=== PATIENT | female | born 1990 | race Caucasian/White ===

== ENCOUNTER 2018-03-18 14:32 | Outpatient (REF) | payer SELFPAY | END 2018-03-18 14:33 | LOC: OM 14:32 | PROVIDERS: Visit Provider Nurse Practitioner Family | DX: Z02.1 Encounter for pre-employment examination (principal) ==

== ENCOUNTER 2018-04-05 01:50 | Emergency (ER) | payer MEDICAID, SELFPAY ==
[2018-04-05 01:52] VITALS: BP 155/59; PULSE 63; RESP 16; TEMP 36.5; O2SAT 98
--- NOTE | 2018-04-05 01:52 | ED.GENADUL ---
Disposition Clinical Impression: Viral URI with cough Disposition: HOME Condition: Good Instructions: Upper Respiratory Infection (ED), Benzonatate (By mouth) Additional Instructions: Rest, qmji-ayg-hgeyybd cold medicine, hydrate. Tessalon as needed for cough. Follow-up with primary care next week if not doing better. Return to ED if increasing shortness of breath, chest pain, vomiting, other concerns. Prescriptions: Benzonatate [Tessalon Perles] 100 mg PO TID PRN #15 cap PRN Reason: Cough Referrals: Primary Care Provider [Outside] Medical Decision Making - Medical Decision Making Patient's symptoms consistent with viral URI. She has no exudate or edema to the throat but I will do a rapid strep due to her complaint of sore throat. She has a dry cough for which we will give her some Tessalon. Her lungs are clear with no wheezing, rhonchi, rales, decreased breath sounds. She is in no distress. He did not think she needs x-rays at this point. We will continue to treat symptomatically for viral URI. Rapid strep is negative. Culture sent. Tessalon given and will provide prescription for same. Treat as viral URI for the time being. Follow-up with primary care next week if not better. Return to ED if increasing shortness of breath, worsening pain, other concerns. History of Present Illness - General Stated complaint: UNKNOWN Time Seen by Provider: 04/05/18 01:51 Source: patient Mode of arrival: ambulatory Limitations: no limitations - History of Present Illness Initial comments: Patient presents to ED with complaint of sore throat, congestion, cough, not feeling well. Symptoms started on Wednesday, 3 days ago. Sore throat is better but the nasal congestion and cough is worse. She does not know whether she has had a fever at home or not since she does not have a thermometer. She has had sweats and chills. She does not feel short of breath. She is not having chest pain. She has no GI symptoms. She has had no rash. She has some body aches and malaise. - Related Data Ethynodiol Diace-Eth Estradiol [Demulen -] 09/08/17 Fluoxetine HCl [Prozac] 20 mg PO DAILY AM 09/08/17 Ibuprofen 600 mg PO Q6H PRN #15 tablet 09/08/17 Levothyroxine [Levothroid] 125 mg PO DAILY 09/08/17 Benzonatate [Tessalon Perles] 100 mg PO TID PRN #15 cap 04/05/18 Allergies Allergy/AdvReac Type Severity Reaction Status Date / Time No Known Allergies Allergy Unverified 04/05/18 01:55 Review of Systems Constitutional: diaphoresis, malaise. denies: fever Eyes: denies: eye discharge ENT: ear pain, throat pain, congestion Respiratory: cough. denies: shortness of breath Cardiovascular: denies: chest pain Gastrointestinal: denies: abdominal pain, nausea, vomiting Genitourinary: denies: dysuria Musculoskeletal: myalgia. denies: arthralgia Skin: denies: rash Neurological: denies: headache, weakness Past Medical History - Past Medical History hypothyroid Surgical history: no surgical history Psychiatric history: anxiety, depression - Social History Smoking status: never smoker General Exam - General Limitations: no limitations General appearance: alert, in no apparent distress - Head Head exam: Present: atraumatic, normocephalic - Eye Eye exam: Present: normal apperance. Absent: conjunctival injection - ENT ENT exam: Present: TM's normal bilaterally. Absent: normal orophraynx (Very slight posterior oropharynx erythema.) - Neck Neck exam: Present: full ROM, lymphadenopathy (Shotty anterior adenopathy) - Respiratory Respiratory exam: Present: normal lung sounds bilaterally. Absent: respiratory distress, wheezes, rales, rhonchi - Cardiovascular Cardiovascular Exam: Present: regular rate, normal rhythm, normal heart sounds - Extremities Exam Extremities exam: Present: full ROM - Neurological Exam Neurological exam: Present: alert, oriented X3, CN II-XII intact. Absent: motor sensory deficit - Psychiatric Psychiatric exam: Present: normal affect, normal mood - Skin Skin exam: Present: warm, dry, intact. Absent: rash
[2018-04-05] MEDS: Benzonatate 100 MG CAP PO (02:08)
--- NOTE | 2018-04-05 08:38 | PDOC.ERCMPRO ---
Care Management Progress Note 04/05-Dr. Rodarte requested assistance with a PCP f/u appt for URI and cough. Patient new to area, needs PCP. [id number] organizational development consultant. Referral faxed to [facility] today.
== END 2018-04-05 02:36 | disposition home or self-care (01) ==
PROVIDERS: Emergency Provider Emergency Medicine
DX: J06.9 Acute upper respiratory infection, unspecified (principal); R05 Cough
CPT/HCPCS: 87880; 99283; 87081

== ENCOUNTER 2018-05-13 19:02 | Outpatient (REF) | payer MEDICAID, SELFPAY ==
[2018-05-16 10:33] LABS: TSH 1.63 uIU/mL (0.358-3.74)
[2018-05-17 14:40] LABS: Chlamydia Result Negative; GC Result Negative; Specimen Description URINE
== END 2018-05-13 19:22 ==
LOC: NCHCN 19:02
PROVIDERS: Visit Provider Nurse Practitioner Family
DX: E03.9 Hypothyroidism, unspecified (principal); J45.990 Exercise induced bronchospasm; F41.8 Other specified anxiety disorders; Z11.3 Encounter for screening for infections with a predominantly sexual mode of transmission
CPT/HCPCS: 87491; 87591; 84443

== ENCOUNTER 2018-08-12 12:26 | Outpatient (CLI) | payer MEDICAID, SELFPAY ==
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
== END 2018-08-12 12:46 ==
PROVIDERS: Visit Provider Nurse Practitioner Family
DX: M25.552 Pain in left hip (principal); R26.2 Difficulty in walking, not elsewhere classified
CPT/HCPCS: 73502

== ENCOUNTER 2018-08-26 09:27 | Outpatient (REF) | payer MEDICAID, SELFPAY ==
[2018-08-26 13:00] LABS: Abs Immature Grans 0.02 k/cumm (0.0-0.09); Absolute Basophil Count 0.03 k/cumm (0.0-0.2); Absolute Eosinophil Count 0.11 k/cumm (0.0-0.7); Absolute Lymphocyte Count 2.63 k/cumm (1.2-3.4); Absolute Monocyte Count 0.57 k/cumm (0.11-0.7); Absolute Neutrophil Count 4.44 k/cumm (1.2-6.7); Basophils % 0.4; Eosinophils % 1.4; HCT 40.1 % (36.0-46.0); HGB 13.5 g/dL (12.0-15.5); Immature Grans % 0.3; Lymphocytes % 33.7; Mean Corp. HGB Concentration 33.7 g/dL (32.0-36.0); Mean Corpuscular Hemoglobin 28.8 pg (27.0-33.0); Mean Corpuscular Volume 85.5 fL (80-95); Mean Platelet Volume 10.5 fL (8.0-11.0); Monocytes % 7.3; Neutrophils % 56.9; Platelet Count 299 x1000/uL (130-400); RBC 4.69 m/cumm (4.00-5.20); RBC Distribution Width 13.2 % (11.7-14.6)
[2018-08-26 13:32] LABS: ALT 24 U/L (12-78); AST 12 U/L (15-37); Albumin 3.6 g/dL (3.4-5.0); Alkaline Phosphatase 109 U/L (46-116); Anion Gap 8.2 mmol/L (3-11); BUN 18 mg/dL (7-18); Bilirubin, Total 0.5 mg/dL (0.2-1.0); CO2 27.8 mmol/L (21.0-32.0); CREATININE 0.83 mg/dL (0.55-1.02); Calcium 9.5 mg/dL (8.5-10.1); Chloride 105 mmol/L (98-107); Glucose 101 mg/dL (70-100); Potassium 4.2 mmol/L (3.5-5.1); Sodium 141 mmol/L (136-145); TSH 2.71 uIU/mL (0.358-3.74); Total Protein 7.1 g/dL (6.4-8.2)
== END 2018-08-26 09:47 ==
LOC: NCHCN 09:27
PROVIDERS: Visit Provider Nurse Practitioner Family
DX: F41.8 Other specified anxiety disorders (principal)
CPT/HCPCS: 80053; 84443; 85025

== ENCOUNTER 2018-09-23 15:42 | Outpatient (REF) | payer MEDICAID, SELFPAY ==
[2018-09-23 19:51] LABS: Vitamin B12 517 pg/mL (193-986)
[2018-09-26 12:12] LABS: HBs Antibody, Quant 7.2 mIU/mL; Hepatitis B Surface Ab Negative
== END 2018-09-23 16:02 ==
LOC: NCHCN 15:42
PROVIDERS: PCP Nurse Practitioner Family; Visit Provider Nurse Practitioner Family
DX: Z11.59 Encounter for screening for other viral diseases (principal); Z00.00 Encounter for general adult medical examination without abnormal findings; F32.9 Major depressive disorder, single episode, unspecified
CPT/HCPCS: 86706; 82607

== ENCOUNTER 2019-01-02 12:07 | Emergency (ER) | payer MEDICAID, SELFPAY ==
[2019-01-02 12:15] VITALS: BP 128/72; PULSE 67; RESP 17; TEMP 36.7; O2SAT 95
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
[2019-01-02 13:39] VITALS: BP 119/78; PULSE 68; RESP 18; O2SAT 97
== END 2019-01-02 13:41 | disposition home or self-care (01) ==
PROVIDERS: Emergency Provider Student in an Organized Health Care Education/Training Program; PCP Nurse Practitioner Family
DX: S09.90XA Unspecified injury of head, initial encounter (principal); R51 Headache; R11.0 Nausea; Y04.2XXA Assault by strike against or bumped into by another person, initial encounter; Y99.0 Civilian activity done for income or pay
CPT/HCPCS: 99282

== ENCOUNTER 2019-03-10 11:34 | Outpatient (REF) | payer MEDICAID, SELFPAY ==
[2019-03-10 20:48] LABS: TSH (W/Ref FT4) 0.73 uIU/mL (0.36-3.74)
== END 2019-03-10 11:54 ==
LOC: NCHCN 11:34
PROVIDERS: PCP Nurse Practitioner Family; Visit Provider Nurse Practitioner Family
DX: E03.9 Hypothyroidism, unspecified (principal)
CPT/HCPCS: 84443

== ENCOUNTER 2019-03-28 11:07 | Outpatient (REF) | payer MEDICAID, SELFPAY ==
--- NOTE | 2019-03-28 09:30 | PAPFT_PTH ---
PATIENT: Chio Méndez LOC: [facility] U#:[id number] AGE/SX: 28/F ROOM: RE03/28/[address]: Janeth Cazares : 1990 BED: DIS: 03/28/2019 SPEC #: [id number] RECD: 03/28/19 12:51 STATUS: RENETTA HEMPHILL #: [id number] LAYLA: 03/28/19 09:[address]: Janeth Cazares DEPT: [facility] Cytology RECD BY: Isabella Adorno ENTERED: 03/28/19 12:52 SP TYPE: PAPFT OTHR DR: Karla Garcia Tissues: 1 - CX/ENDOCX FOR PAP SMEARS Procedures: PAP THIN PREP/[facility] Screening Comments: [id number]
== END 2019-03-28 11:27 ==
LOC: NCHCN 11:07
PROVIDERS: PCP Nurse Practitioner Family; Visit Provider Nurse Practitioner Family
DX: Z12.4 Encounter for screening for malignant neoplasm of cervix (principal); Z11.51 Encounter for screening for human papillomavirus (HPV)
CPT/HCPCS: 88142

== ENCOUNTER 2019-12-28 11:11 | Outpatient (CLI) | payer MEDICAID, SELFPAY ==
[2019-12-29 10:07] LABS: Measles IgG Antibody Positive (See Note); Varicella IgG Antibody Positive (See Note)
[2019-12-29 10:11] LABS: Mumps Antibody IgG Positive (See Note); Rubella IgG Ab (UVM) Positive (See Note)
[2019-12-29 10:39] LABS: HBs Antibody, Quant 7.5 mIU/mL (See Note); Hepatitis B Surface Ab Negative (See Note)
[2020-01-01 13:54] LABS: TB Interpretation Negative (Negative)
== END 2019-12-28 11:31 ==
PROVIDERS: PCP Nurse Practitioner Family; Visit Provider Nurse Practitioner Family
DX: Z02.1 Encounter for pre-employment examination (principal); Z11.59 Encounter for screening for other viral diseases; Z01.84 Encounter for antibody response examination; Z11.1 Encounter for screening for respiratory tuberculosis
CPT/HCPCS: 36415; 86706; 86787; 86480; 86735; 86762; 86765

== ENCOUNTER 2020-04-24 15:44 | Outpatient (REF) | payer MEDICAID, SELFPAY ==
[2020-04-24 19:35] LABS: HCT 43.1 % (36.0-46.0); HGB 14.4 g/dL (11.2-15.7); MCH 27.9 pg (27.0-33.0); MCHC 33.4 % (32.0-36.0); MCV 83.4 fL (80-95); MPV 11.4 fL (8.0-11.0); Platelet Count 286 10^3/uL (130-400); RBC 5.17 10^6/uL (3.93-5.22); RDW 12.8 % (11.7-14.6); RDW-SD 38.7 fL
[2020-04-24 20:42] LABS: ALT 30 U/L (14-59); AST 13 U/L (15-37); Albumin 3.8 g/dL (3.4-5.0); Alkaline Phosphatase 136 U/L (46-116); Anion Gap 10.1 mmol/L (3-11); BUN 17 mg/dL (7-18); Bilirubin, Total 0.4 mg/dL (0.2-1.0); CO2 22.9 mmol/L (21.0-32.0); CREATININE 0.79 mg/dL (0.55-1.02); Calcium 9.1 mg/dL (8.5-10.1); Calculated LDL 110 mg/dL (<100); Chloride 101 mmol/L (98-107); Cholesterol 171 mg/dL (<200); Glucose 242 mg/dL (74-106); HDL Cholesterol 40 mg/dL (40-60); Potassium 3.9 mmol/L (3.5-5.1); Sodium 134 mmol/L (136-145); TSH (W/Ref FT4) 3.39 uIU/mL (0.36-3.74); Total Protein 7.4 g/dL (6.4-8.2); Triglyceride 109 mg/dL (<150)
[2020-04-24 21:24] LABS: Iron 90 ug/dL (50-170); Total Iron Binding Capacity 331 ug/dL (250-450); Transferrin Sat 27 % (15-50)
== END 2020-04-24 16:04 ==
LOC: NCHCN 15:44
PROVIDERS: PCP Nurse Practitioner Family; Visit Provider Nurse Practitioner Family
DX: R53.83 Other fatigue (principal); Z13.220 Encounter for screening for lipoid disorders; Z13.228 Encounter for screening for other metabolic disorders
CPT/HCPCS: 80053; 80061; 85027; 83540; 83550; 84443

== ENCOUNTER 2020-06-03 17:53 | Outpatient (REF) | payer MEDICAID, SELFPAY ==
[2020-06-03 20:11] LABS: Hemoglobin A1C 10.7 % (<5.7)
== END 2020-06-03 18:13 ==
LOC: NCHCN 17:53
PROVIDERS: PCP Nurse Practitioner Family; Visit Provider Nurse Practitioner Family
DX: R73.09 Other abnormal glucose (principal)
CPT/HCPCS: 83036

== ENCOUNTER 2020-06-07 03:26 | Outpatient (CLI) | payer MEDICAID, SELFPAY ==
--- NOTE | 2020-06-07 | DI.US_ITS ---
EXAM: US ABDOMEN CLINICAL HISTORY: ABD PAIN, R10.9, RUQ PAIN, NAUSEA FOR 2 WKS TECHNIQUE: Ultrasound abdomen performed using standard protocol. COMPARISON: No exams were available for comparison FINDINGS: LIVER: Liver is enlarged and shows increased echogenicity, consistent with fatty infiltration. Liver measures 19 cm in length.. No focal liver lesions are seen.. GALLBLADDER: No evidence of cholelithiasis. No evidence of wall thickening. No pericholecystic fluid identified. BERNABE'S SIGN: Negative. BILIARY SYSTEM: No intrahepatic or extrahepatic biliary ductal dilation. KIDNEYS: Kidneys are symmetric in size. No evidence of renal calculi. No evidence of hydronephrosis. No renal mass or cyst identified. PANCREAS: Normal where visualized. SPLEEN: Not enlarged. ABDOMINAL AORTA AND IVC: Visualized portions normal caliber. ASCITES: None seen. IMPRESSION: Moderate hepatic steatosis. No gallbladder abnormality.. DATA REPOSITORY:
== END 2020-06-07 03:46 ==
PROVIDERS: PCP Physician Assistant; Visit Provider Specialist
DX: K76.0 Fatty (change of) liver, not elsewhere classified (principal)
CPT/HCPCS: 76700

== ENCOUNTER 2020-09-04 14:00 | Outpatient (REF) | payer MEDICAID, SELFPAY ==
[2020-09-04 15:15] LABS: HCT 39.6 % (36.0-46.0); HGB 13.1 g/dL (11.2-15.7); MCH 28.1 pg (27.0-33.0); MCHC 33.1 % (32.0-36.0); MPV 10.7 fL (8.0-11.0); Platelet Count 326 10^3/uL (130-400); RBC 4.66 10^6/uL (3.93-5.22); RDW 12.5 % (11.7-14.6); RDW-SD 38.2 fL
[2020-09-04 15:40] LABS: Ferritin 111 ng/mL (8-252); TSH (W/Ref FT4) 1.33 uIU/mL (0.36-3.74)
[2020-09-04 15:41] LABS: Hemoglobin A1C 7.6 % (<5.7)
[2020-09-05 04:51] LABS: Vitamin D 25 Total 30.2 ng/ml (30-100)
== END 2020-09-04 14:20 ==
LOC: NCHCN 14:00
PROVIDERS: PCP Physician Assistant; Visit Provider Nurse Practitioner Family
DX: R53.83 Other fatigue (principal); E11.65 Type 2 diabetes mellitus with hyperglycemia; J45.20 Mild intermittent asthma, uncomplicated; G43.109 Migraine with aura, not intractable, without status migrainosus; E03.9 Hypothyroidism, unspecified
CPT/HCPCS: 82306; 85027; 82728; 83036; 84443

== ENCOUNTER 2020-11-01 03:15 | Outpatient (CLI) | payer MEDICAID, SELFPAY ==
[2020-11-01 09:33] LABS: HCG Quant, Pregnancy 5698 mIU/mL (1-3)
== END 2020-11-01 03:16 | disposition home or self-care (01) ==
LOC: LBO 03:15
PROVIDERS: PCP Physician Assistant
DX: Z32.01 Encounter for pregnancy test, result positive (principal)
CPT/HCPCS: 36415; 84702

== ENCOUNTER 2020-12-10 11:21 | Outpatient (CLI) | payer MEDICAID, SELFPAY ==
[2020-12-10 11:35] LABS: Source Nasal/Nares
[2020-12-10 11:54] LABS: Abs Immature Grans 0.03 10^3/uL (0.0-0.06); Absolute Basophil Count 0.05 10^3/uL (0.0-0.2); Absolute Eosinophil Count 0.11 10^3/uL (0.0-0.7); Absolute Lymphocyte Count 1.94 10^3/uL (1.2-3.4); Basophils % 0.6; Eosinophils % 1.4; HCT 37.8 % (36.0-46.0); HGB 12.6 g/dL (11.2-15.7); Immature Grans % 0.4; Lymphocytes % 25.1; MCH 28.3 pg (27.0-33.0); MCHC 33.3 % (32.0-36.0); MCV 84.9 fL (80-95); MPV 9.7 fL (8.0-11.0); Monocytes % 6.5; Nucleated RBC 0 %; Platelet Count 299 10^3/uL (130-400); RBC 4.45 10^6/uL (3.93-5.22); RDW 12.9 % (11.7-14.6); RDW-SD 39.8 fL; WBC 7.73 10^3/uL (4.4-10.8)
[2020-12-10 14:30] LABS: COVID-19 PCR Negative (Negative)
== END 2020-12-10 11:22 | disposition home or self-care (01) ==
LOC: LBO 11:21
PROVIDERS: PCP Physician Assistant; Visit Provider Obstetrics & Gynecology
DX: O02.1 Missed abortion (principal); Z20.822 Contact with and (suspected) exposure to COVID-19; Z01.818 Encounter for other preprocedural examination; Z01.812 Encounter for preprocedural laboratory examination
CPT/HCPCS: 36415; 86850; 86900; 86901; 87635; 85025

== ENCOUNTER 2020-12-12 07:08 | Day surgery (SDC) | payer MEDICAID, SELFPAY ==
[2020-12-12 07:30] VITALS: BP 113/75; PULSE 82; RESP 16; TEMP 36.6; O2SAT 97
[2020-12-12] MEDS: Lactated Ringers 1,000 ML 100 ML IV (07:58)
--- NOTE | 2020-12-12 08:08 | ANES.PREOP_ITS ---
General Info Date of Service Date Performed: 12/12/20 Height: 5 ft 3 in Weight: 112.2 kg Body Mass Index (BMI): 43.8 Surgical Procedure: Operation Date: 12/12/20 08:40 Proposed Procedures Side Surgeon p Suction Completion Merissa Spivey DO Meds Allergies and Home Medications Allergies Allergy/AdvReac Type Severity Reaction Status Date / Time bee venom protein (honey bee) Allergy Severe Verified 12/12/20 07:29 house dust Allergy Mild Verified 12/12/20 07:29 Home Medication Medication Instructions Recorded levothyroxine 125 mg PO DAILY 09/08/17 loratadine [Claritin] 10 mg PO DAILY 01/02/19 escitalopram oxalate 20 mg tablet 20 mg PO DAILY 10/28/20 metformin 1,000 mg tablet 1,000 mg PO BID 10/28/20 prenat.vits,rafal,mve-yztw-kukye 1 tab PO DAILY 10/28/20 Current Visit Medications: Current Medications Generic Name Dose Route Start Last Admin Trade Name Freq PRN Reason Stop Dose Admin Ringer's Solution 1,000 mls @ 100 mls/hr 12/12/20 06:00 12/12/20 07:58 IV 01/10/21 23:59 100 mls/hr INFUSION NHI Administration Doxycycline Hyclate 100 mg/ 100 mls @ 100 mls/hr 12/12/20 06:00 Sodium Chloride IVPB 12/12/20 23:59 PREOP NHI IV Miscellaneous Supplies 1 each 12/12/20 06:00 Iv Access IV 01/10/21 23:59 DIRECTED NHI Sodium Chloride 0 ml 12/12/20 06:00 Normal Saline Flush 10 Ml Syr IV 01/10/21 23:59 PRN PRN Sodium Chloride 0 ml 12/12/20 06:00 Normal Saline 10 Ml Vial IJ 01/10/21 23:59 DIRECTED PRN Sterile Water 0 ml 12/12/20 06:00 Water,Injection,Sterile 10 Ml Vial IJ 01/10/21 23:59 DIRECTED PRN PFSH Active Problems Active Problems: Problem Status Onset Code Type 2 diabetes mellitus E11.9 Hypothyroidism E03.9 Medical History Medical History (Updated 12/12/20 @ 08:15 by Radha Last) Body mass index (BMI) of 40.0-44.9 in adult Depression with anxiety Exercise-induced asthma Hx of sleep apnea cpap Hypothyroidism Type 2 diabetes mellitus Surgical History Surgical History (Updated 12/12/20 @ 07:29 by Radha Last) Hx of adenoidectomy Hx of tonsillectomy Hx of wisdom tooth extraction Tobacco Smoking/Tobacco Use Status: Never Second hand exposure: Yes Alcohol Alcohol Intake: never Details: occasional Substance Use Substance use: Never Substance use type: does not use Prental History History 1 Para 0 Hx # Term Pregnancies 0 Multiple births 0 Hx # Pregnancies 0 Ectopic pregnancies 0 AB induced 0 Hx Number of Living Children 0 AB spontaneous 1 Vital Signs and Lab Results Vital Signs Most Recent Vital Signs in EMR: Most Recent Vital Signs Temp Pulse Resp BP Pulse Ox 36.6 C 82 16 113/75 97 12/12/20 07:30 12/12/20 07:30 12/12/20 07:30 12/12/20 07:30 12/12/20 07:30 Point of Care Results Point of Care Results: Finger Stick Blood Glucose 146 12/12/20 07:59 Lab Results Blood Type / Crossmatch: Patient ABO/Rh A Positive 12/10/20 11:40 12/10/20 Antibody Screen Negative 12/10/20 11:40 12/10/20 Complete Blood Count: 2 White Blood Count 7.73 10^3/uL (4.4-10.8) 12/10/20 11:40 12/10/20 Red Blood Count 4.45 10^6/uL (3.93-5.22) 12/10/20 11:40 12/10/20 Hemoglobin 12.6 g/dL (11.2-15.7) 12/10/20 11:40 12/10/20 Hematocrit 37.8 % (36.0-46.0) 12/10/20 11:40 12/10/20 Platelet Count 299 10^3/uL (130-400) 12/10/20 11:40 12/10/20 Complete Metabolic Panel: Sodium Level 134 mmol/L (136-145) L 04/24/20 16:00 04/24/20 Potassium Level 3.9 mmol/L (3.5-5.1) 04/24/20 16:00 04/24/20 Chloride Level 101 mmol/L (98-107) 04/24/20 16:00 04/24/20 Carbon Dioxide Level 22.9 mmol/L (21.0-32.0) 04/24/20 16:00 04/24/20 Blood Urea Nitrogen 17 mg/dL (7-18) 04/24/20 16:00 04/24/20 Creatinine 0.79 mg/dL (0.55-1.02) 04/24/20 16:00 04/24/20 Calcium Level 9.1 mg/dL (8.5-10.1) 04/24/20 16:00 04/24/20 Albumin 3.8 g/dL (3.4-5.0) 04/24/20 16:00 04/24/20 Glucose Level 242 mg/dL (74-106) H 04/24/20 16:00 04/24/20 Hemoglobin A1c 7.6 % (<5.7) H 09/04/20 09:15 09/04/20 Liver Function Panel: Alanine Aminotransferase (ALT/SGPT) 30 U/L (14-59) 04/24/20 16:00 04/24/20 Aspartate Amino Transf (AST/SGOT) 13 U/L (15-37) L 04/24/20 16:00 04/24/20 Coagulation Panel: No Data to Display Cardiac Panel: No Data to Display Arterial Blood Gas: No Data to Display Venous Blood Gas: No Data to Display Pancreas Panel: No Data to Display Thyroid Panel: Thyroid Stimulating Hormone (TSH) 1.33 uIU/mL (0.36-3.74) 09/04/20 09:15 09/04/20 Infectious Disease: Coronavirus (COVID-19)(PCR) Negative (Negative) 12/10/20 11:28 12/10/20 Coronavirus 2019 Source Nasal/nares 12/10/20 11:28 12/10/20 Blood Cultures: No Data to Display Toxicology Panel: No Data to Display Panel: Urine HCG, Qualitative Positive 10/28/20 09:22 10/28/20 Beta HCG, Quantitative 5698 mIU/mL (1-3) H 11/01/20 07:59 11/01/20 Anesthesia Assessment and Plan Anesthesia History Personal History: No History of Anesthesia Complications Family History: No Family History of Anesthesia Complications Exercise Tolerance Exercise Tolerance: Metabolic Equivalents>4 Pertinent Negatives Pertinent Negatives: No Symptoms of GERD Cardiac & Pulmonary Exam Cardiac Exam: Normal S1/S2 Heart Sounds Pulmonary Exam: Clear Bilateral Breath Sounds Airway Exam Known Difficult Airway: No Mallampati Class: 1 Mouth Opening: Normal (> 3cm) Thyromental Distance: Greater than 3 cm Neck Range of Motion: Full ROM Neck Circumference: Thick Teeth Condition: Normal Dentition ASA Classification ASA Score: ASA 3 ASA Emergency: No NPO Status NPO Status: NPO Clears >2 hours, Solids >8 hours Status Status: Positive HCG (Missed ) Anesthesia Plan Anesthesia Technique: General Anesthesia Airway Planned: Natural Airway Monitors Used: Standard Monitors
[2020-12-12 08:18] VITALS: BMI 43.8
[2020-12-12] MEDS: DOXYCYCLINE 100 MG in Normal Saline 100 ML IVPB (09:03)
--- NOTE | 2020-12-12 09:30 | POCSPONT_PTH ---
PATIENT: Chio Méndez LOC: [facility] U#:[id number] AGE/SX: 29/F ROOM: RE12/12/[address]: Merissa Spivey DO : 1990 BED: DIS: 12/12/2020 SPEC #: [id number] RECD: 12/12/20 12:40 STATUS: RENETTA REQ #: [id number] LAYLA: 12/12/20 09:[address]: Merissa Spivey DEPT: Surgical Specimen RECD BY: Isabella Adorno ENTERED: 12/12/20 12:41 SP TYPE: POCSPONT HERNANDO DR: Omar Gilliam Tissues: 1 - ,SPONTANEOUS Procedures: GROSS AND MICRO LEVEL 4 Comments: [id number]
[2020-12-12 09:40] VITALS: BP 132/78; PULSE 86; RESP 14; TEMP 36.1; O2SAT 98
--- NOTE | 2020-12-12 09:44 | ROE_ITS ---
Date of service: 12/12/20 Time of Service: 09:45 Operative Note Operative Note DATE OF PROCEDURE: 12/12/20 PRE-OP DIAGNOSIS: Missed POST-OP DIAGNOSIS: same PROCEDURE: Dilation and curettage with suction SURGEON: Merissa Spivey ANESTHESIA TYPE: General:No Airway Refer to Anesthesia Record ESTIMATED BLOOD LOSS: 150 PATHOLOGY: other (Products of conception) COMPLICATIONS: None Patient was transported to: same day Indications: Missed Findings: Moderate products of conception Procedure Description: Patient was taken to the operating suite with an IV running. She was placed in dorsal supine position and anesthesia administered via monitored anesthesia care. She did receive doxycycline 1 dose IV. She was placed in the modified dorsal lithotomy position and prepped and draped in usual sterile fashion. Timeout was performed. Exam under anesthesia confirmed a uterus specimen 8 weeks size and freely mobile. Speculum was placed into the posterior vaginal vault and single-tooth tenaculum used to grasp the anterior lip of the cervix. Cervical os dilated the point that a 8 Macanese curved suction curette could be passed and with suction to a maximum pressure of 60 mmHg gentle suction curettage was performed. There were moderate products of conception noted. At this point suction catheter was removed and a sharp curettage performed of the uterine cavity. A second pass of the suction curette was performed and the coarse cry of the uterus could be felt in all 4 quadrants and free of tissue. The uterus was contracted and firm. Hemostasis was noted. Tenaculum was removed and tenaculum puncture sites also noted to be hemostatic. Uterus is midline and mobile, firm and well contracted. Speculum was then removed and patient was returned to the dorsal supine position. She woke from anesthesia with ease. Complications are none apparent. EBL: 150 cc Pathology: Products of conception Complications none apparent: Fluids: Crystalloid per anesthesia
[2020-12-12 10:18] VITALS: BP 143/79; PULSE 66; RESP 16; TEMP 36.2; O2SAT 100
[2020-12-12] MEDS: Acetaminophen 500 MG TAB 1000 MG PO (10:18)
[2020-12-12] MEDS: Doxycycline Hyclate 100 MG CAP PO (10:19)
--- NOTE | 2020-12-13 10:28 | W.ANESPOSTOP ---
Postoperative Evaluation Date, Time and Location Date Performed: 12/12/20 Time Performed: 10:15 Patient Location: Day Surgery Unit Vital Signs Most Recent Imported Vital Signs: Most Recent Vital Signs Temp Pulse Resp BP Pulse Ox 36.2 C L 66 16 143/79 H 100 12/12/20 10:18 12/12/20 10:18 12/12/20 10:18 12/12/20 10:18 12/12/20 10:18 Pain Score Most Recent Pain Score: Most Recent Pain Score Pain Level 6 12/12/20 10:18 Assessment Mental Status: Awake (Alert & Oriented to Patient Baseline) Airway and Respiratory Function: Patent airway with normal (patient baseline) respiratory exam Cardiovascular Function: Hemodynamically Stable Hydration Status: Adequately Hydrated Nausea & Vomiting: No Nausea or Vomiting Pain: Pain is Moderate or Severe (PO medication ordered) Postoperative Pain Management: Pain being addressed with medication Peripheral Nerve Block: Patient did not receive a nerve block
== END 2020-12-12 10:47 | disposition home or self-care (01) ==
PROVIDERS: PCP Physician Assistant; Visit Provider Obstetrics & Gynecology
PROC: (CPT 59841; principal; 2020-12-12 08:30)
DX: O02.1 Missed abortion (principal); Z3A.10 10 weeks gestation of pregnancy; E11.9 Type 2 diabetes mellitus without complications; Z79.84 Long term (current) use of oral hypoglycemic drugs; E03.9 Hypothyroidism, unspecified; F32.9 Major depressive disorder, single episode, unspecified
CPT/HCPCS: 59820; 86850; 86900; 86901; 88305; J2001; J2250; J2704; J3010

== ENCOUNTER 2021-02-19 20:00 | Emergency (ER) | payer MEDICAID, SELFPAY ==
[2021-02-19 20:04] VITALS: BP 132/87; PULSE 80; RESP 16; TEMP 36.9; O2SAT 97
--- NOTE | 2021-02-19 20:16 | W.ED.GENAD ---
Discharge Plan Disposition Patient Disposition: HOME Condition: Good Discharge Details Clinical Impression: URI (upper respiratory infection), Asthma Primary Care Provider: Omar Gilliam ED Provider: Naomi Olguin Home Meds and New Rx's Prescriptions: Continued escitalopram oxalate [Lexapro] 20 mg tablet 20 mg PO DAILY RF: 0 metformin 1,000 mg tablet 1,000 mg PO BID RF: 0 prenat.vits,rafal,gjr-wajq-txbme Tablet 1 tab PO DAILY RF: 0 loratadine [Claritin] 10 mg Tablet 10 mg PO DAILY RF: 0 levothyroxine 175 MCG tablet 125 mg PO DAILY RF: 0 ibuprofen 800 mg tablet 800 mg PO Q8H PRNQty: 30 RF: 0 Discharge Instructions Instructions: Albuterol (By breathing), Asthma (ED), Upper Respiratory Infection (ED) Additional Instructions: Your imaging and exam are reassuring here today. This is likely a viral upper respiratory infection. Please encourage water intake. Please continue your albuterol as previously prescribed. You may use Tylenol and ibuprofen as needed for discomfort or fevers. Please quarantine until your COVID-19 testing has returned. If you develop any new or worsening symptoms please seek care urgently once again. Otherwise, please follow-up with primary care in 1 week for reevaluation. Stand Alone Forms: Work Release Referrals: Omar Gilliam [Primary Care Provider] - Discharge Data Discharge Date/Time-TO BE ENTERED AT DEPARTURE: 02/19/21 21:20 Medical Decision Making Patient is a pleasant 30-year-old female presenting today with chief complaint of chest congestion. She reports that she has had symptoms x4 days. Patient initially she was having sinus congestion, sore throat both of which have improved. Patient reports she has a history of asthma and has been using her inhaler. States that yesterday she is sick quite frequently. 3 times today. The use of the inhaler has been decreasing. 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 Patient has been vaccinated against COVID-19. Her significant other is also sick with similar symptoms. On exam, patient appears nontoxic. No significant normalities in HEENT exam. Lungs are clear, no wheezes, rales, rhonchi. Normal cardiac exam. No lower extremity swelling or discomfort. FINDINGS: Lungs: Unremarkable. No consolidation. Pleural spaces: Unremarkable. No pleural effusion. No pneumothorax. Heart/Mediastinum: Unremarkable. No cardiomegaly. Bones/joints: Unremarkable. IMPRESSION: No acute findings. At this time, history and exam is not consistent with bacterial infection. Advised likely viral source. Will obtain COVID-19 testing. Encouraged hydration. Her asthma symptoms ahve been well controlled with inhaler. We will send her home with another as this is running low. Her demand for this is lowering. I do not see need for steroids currently, believe risk will out weigh benefit. Discussed home remedies and OTC medications that may help with symptomatic management. Advised return precautions. She will quarantine until results have returned. All of her quesitons and concerns were addressed, she is in agreement with this plan. HPI General Mode of arrival: ambulatory. Date/Time Provider Initiated Documentation: 02/19/21 20:01. Limitations to Documentation: no limitations. Information obtained by: patient and RN notes reviewed. History of Present Illness 30 year old F presents to the emergency department with the chief complaint of cough, congestion, described as moderate (improving), with intensity rated at 3. and is localized to the face and chest. Patient reports no radiation. Patient started experiencing this day(s) (3) and it has been constant. No relieving factors improve symptom(s), No exacerbating factors reported . Patient notes cough; denies chest pain, fever/chills, loss of appetite, nausea/vomiting, rash and shortness of breath (felt SOB with mask on at work, none with mask off). Patient did receive the following treatments prior to arrival, none Related Data Home Medications Medication Instructions Recorded Confirmed levothyroxine 125 mg PO DAILY 09/08/17 02/19/21 loratadine [Claritin] 10 mg PO DAILY 01/02/19 02/19/21 escitalopram oxalate 20 mg tablet 20 mg PO DAILY 10/28/20 02/19/21 metformin 1,000 mg tablet 1,000 mg PO BID 10/28/20 02/19/21 prenat.vits,rafal,mvt-kooe-ynspe 1 tab PO DAILY 10/28/20 12/12/20 ibuprofen 800 mg PO Q8H PRN #30 tab 12/12/20 02/19/21 Previous Rx's Medication Instructions Recorded ibuprofen 800 mg PO Q8H PRN #30 tab 12/12/20 Allergies Allergy/AdvReac Type Severity Reaction Status Date / Time bee venom protein (honey bee) Allergy Severe Verified 02/19/21 20:09 house dust Allergy Mild Verified 02/19/21 20:09 General Stated Complaint: RespSymp SIN: 4 Review of Systems Constitutional Constitutional: Reports as per HPI and Denies headache(s) Eyes Eyes: Reports as per HPI, Denies eye discharge and Denies irritation ENT Ears, Nose, Mouth, and Throat: Reports as per HPI and Denies headache(s) Cardiovascular Cardiovascular: Reports as per HPI, Denies chest pain and Denies dyspnea Respiratory Respiratory: Reports as per HPI and Denies dyspnea Gastrointestinal Gastrointestinal: Reports as per HPI, Denies abdominal pain, Denies change in bowel habits, Denies nausea and Denies vomiting Integumentary/Breasts Skin/Breast: Reports as per HPI and Denies rash Neurologic Neurologic: Reports as per HPI and Denies headache(s) [facility] Medical History (Updated 02/19/21 @ 20:56 by TONI [place]) Body mass index (BMI) of 40.0-44.9 in adult Depression with anxiety Exercise-induced asthma Hx of sleep apnea cpap Hypothyroidism Type 2 diabetes mellitus Surgical History Hx of adenoidectomy Hx of tonsillectomy Hx of wisdom tooth extraction Status post D&C Social History Smoking/Tobacco Use Status: Current every day Tobacco Type: cigarettes Years smoked: 1 Second Hand Exposure: Yes Smoking risk assessment performed?: Yes Alcohol Intake: never Details: occasional Drug use: Never Substance use type: does not use Number of Children: 0 Seatbelt use: always Do you feel safe at home: Yes Do you feel safe in your relationship?: Yes Female Reproductive History Menstrual control method: pills History History 1 Para 0 Hx # Term Pregnancies 0 Multiple births 0 Hx # Pregnancies 0 Ectopic pregnancies 0 AB induced 0 Hx Number of Living Children 0 AB spontaneous 1 Past Pregnancies Del. Date GA/Weeks # Outcome Route Wgt Sex Labor Lgth Anesthesia Location Prov Complic 12/10/20 10 No Unsuccessful Delivery Date: 12/10/20 Missed AB; D&C 12/12/20; MD Brennan Santamaria Kim Exam Const General: cooperative, healthy appearing, comfortable, no acute distress, well developed and well groomed Nutritional Appearance: well nourished and overweight Orientation: alert and awake [facility] Head: normal to inspection, normocephalic and atraumatic Ears: hearing grossly normal bilaterally, external ears normal and TM's normal bilaterally General nose exam: external nose normal and nares normal Face and sinus: normal facial exam, sinuses nontender and face symmetric Mouth: oral mucosae normal, lip normal, tongue normal, oropharynx normal and moist mucous membranes Teeth and gingiva: dentition normal Throat: posterior oropharynx normal, uvula midline and tonsils absent Eyes General: appearance normal, both eyes and all related structures Neck Neck: normal visual inspection, full ROM, no lymphadenopathy and no meningeal signs Resp Effort & Inspection: normal respiratory effort, able to speak in complete sentences and no respiratory distress Auscultation: clear to auscultation bilaterally, no rales, no rhonchi and no wheezes Cardio Rate: regular rate Rhythm: regular rhythm Heart Sounds: S1 normal and S2 normal Skin General skin exam: no rashes or lesions noted Neuro General: patient alert and patient awake Cognition: normal cognition Speech: speech normal Gait: normal gait Psych Appearance: grossly normal and well kempt Mental Status: mental status grossly normal Speech and Movement: speech and movement normal Course Vital Signs Vital signs: Vital Signs Temperature 36.9 C 02/19/21 20:04 Pulse 80 02/19/21 20:04 Respiratory Rate 16 02/19/21 20:04 Blood Pressure 132/87 02/19/21 20:04 Pulse Oximetry 97 02/19/21 20:04 Temperature 36.9 C 02/19/21 20:04 Temperature Source Temporal Artery Scan 02/19/21 20:04 Pulse 80 02/19/21 20:04 Respiratory Rate 16 02/19/21 20:04 Respiratory Effort 02/19/21 20:06 Respiratory Depth Normal 02/19/21 20:06 Blood Pressure 132/87 02/19/21 20:04 Blood Pressure Position Sitting 02/19/21 20:04 Pulse Oximetry 97 02/19/21 20:04 Oxygen Delivery Method Room Air 02/19/21 20:04 Oxygen Flow Rate 0 02/19/21 20:04 Pain Level 3 02/19/21 20:04
--- NOTE | 2021-02-19 20:33 | DI.RAD_ITS ---
Exam(s) XR PORTABLE CHEST AP EXAM: XR PORTABLE CHEST AP CLINICAL HISTORY: cough, congestion TECHNIQUE: 2D digital imaging was performed. COMPARISON: No exams were available for comparison FINDINGS: LUNGS: Clear. No pleural abnormality seen. HEART: Normal. MEDIASTINUM: Normal. BONES: Unremarkable. IMPRESSION: No acute pulmonary findings. DATA REPOSITORY: RADIATION DOSE DELIVERED:
--- NOTE | 2021-02-19 20:54 | DI.VRAD_ITS ---
PROCEDURE INFORMATION: Exam: XR Chest Exam date and time: 02/19/2021 8:14 PM Age: 30 years old Clinical indication: Cough TECHNIQUE: Imaging protocol: XR of the chest. Views: 1 view. COMPARISON: No relevant prior studies available. FINDINGS: Lungs: Unremarkable. No consolidation. Pleural spaces: Unremarkable. No pleural effusion. No pneumothorax. Heart/Mediastinum: Unremarkable. No cardiomegaly. Bones/joints: Unremarkable. IMPRESSION: No acute findings. Dictated and Authenticated by: Osmin Lewis MD. Ordering:ABRIL Salgado MD
[2021-02-19] MEDS: Albuterol HFA 8 GM 60 PUFF INH IH (21:10)
[2021-02-19 21:13] VITALS: BP 131/81; PULSE 80; RESP 16; TEMP 36.8; O2SAT 98
[2021-02-21 11:49] LABS: COVID-19 RT-PCR UVMMC Result Negative (Negative)
== END 2021-02-19 21:20 | disposition home or self-care (01) ==
PROVIDERS: Emergency Provider Physician Assistant; PCP Physician Assistant
DX: J06.9 Acute upper respiratory infection, unspecified (principal); J45.909 Unspecified asthma, uncomplicated; Z20.822 Contact with and (suspected) exposure to COVID-19
CPT/HCPCS: 99283; U0003; 71045

== ENCOUNTER 2021-02-20 18:52 | Outpatient (REF) | payer MEDICAID, SELFPAY ==
[2021-02-20 19:00] LABS: Source Nasal/Nares
[2021-02-20 19:41] LABS: COVID-19 PCR Negative (Negative)
== END 2021-02-20 18:53 | disposition home or self-care (01) ==
LOC: LBN 18:52
PROVIDERS: PCP Physician Assistant; Visit Provider Family Medicine
DX: Z20.822 Contact with and (suspected) exposure to COVID-19 (principal)
CPT/HCPCS: 87635

== ENCOUNTER 2021-05-08 08:38 | Outpatient (REF) | payer MEDICAID, SELFPAY ==
[2021-05-08 19:38] LABS: Anion Gap 10.7 mmol/L (3-11); BUN 15 mg/dL (7-18); CO2 25.3 mmol/L (21.0-32.0); CREATININE 0.9 mg/dL (0.55-1.02); Calcium 9.3 mg/dL (8.5-10.1); Chloride 106 mmol/L (98-107); FREE T4 1.08 ng/dL (0.76-1.46); Glucose 137 mg/dL (74-106); Potassium 4.1 mmol/L (3.5-5.1); Sodium 142 mmol/L (136-145)
== END 2021-05-08 08:39 | disposition home or self-care (01) ==
LOC: NCHCN 08:38
PROVIDERS: PCP Physician Assistant; Visit Provider Nurse Practitioner Family
DX: E11.9 Type 2 diabetes mellitus without complications (principal); E03.9 Hypothyroidism, unspecified
CPT/HCPCS: 80048; 84439; 84443

== ENCOUNTER 2021-09-11 16:52 | Outpatient (REF) | payer MEDICAID, SELFPAY ==
[2021-09-11 13:19] LABS: HCT 40.2 % (36.0-46.0); HGB 12.8 g/dL (11.2-15.7); MCH 27.6 pg (27.0-33.0); MCHC 31.8 % (32.0-36.0); MCV 86.8 fL (80-95); MPV 10.8 fL (8.0-11.0); Platelet Count 310 10^3/uL (130-400); RBC 4.63 10^6/uL (3.93-5.22); RDW 12.7 % (11.7-14.6); WBC 7.04 10^3/uL (4.4-10.8)
[2021-09-11 13:49] LABS: FREE T4 1.35 ng/dL (0.76-1.46); TSH 0.08 uIU/mL (0.36-3.74)
[2021-09-11 13:53] LABS: Vitamin D 25 Total 30.2 ng/mL (30-100)
[2021-09-11 14:04] LABS: Hemoglobin A1C 7.5 % (<5.7)
== END 2021-09-11 16:53 | disposition home or self-care (01) ==
LOC: NCHCN 16:52
PROVIDERS: PCP Physician Assistant; Visit Provider Nurse Practitioner Family
DX: E03.9 Hypothyroidism, unspecified (principal); F32.9 Major depressive disorder, single episode, unspecified; E11.9 Type 2 diabetes mellitus without complications; R89.9 Unspecified abnormal finding in specimens from other organs, systems and tissues
CPT/HCPCS: 82306; 85027; 83036; 84439; 84443

== ENCOUNTER 2021-10-30 17:37 | Outpatient (REF) | payer MEDICAID, SELFPAY ==
[2021-10-30 13:49] LABS: TSH 0.77 uIU/mL (0.36-3.74)
== END 2021-10-30 17:38 | disposition home or self-care (01) ==
LOC: NCHCN 17:37
PROVIDERS: PCP Physician Assistant; Visit Provider Nurse Practitioner Family
DX: E03.9 Hypothyroidism, unspecified (principal)
CPT/HCPCS: 84436; 84443

== ENCOUNTER 2021-12-22 18:38 | Emergency (ER) | payer MEDICAID, SELFPAY ==
[2021-12-22 18:58] VITALS: BP 135/83; PULSE 87; RESP 19; TEMP 36.7; O2SAT 100
--- NOTE | 2021-12-22 21:23 | ED.GENADUL_ITS ---
Discharge Plan Disposition Patient Disposition: HOME Condition: Improving Discharge Details Clinical Impression: Depression Primary Care Provider: Omar Gilliam ED Provider: Scott Hensley Home Meds and New Rx's Prescriptions: Continued escitalopram oxalate [Lexapro] 20 mg tablet 20 mg PO DAILY 0RF metformin 1,000 mg tablet 1,000 mg PO BID 0RF prenat.vits,rafal,zfa-wpvo-tdyot Tablet 1 tab PO DAILY 0RF loratadine [Claritin] 10 mg Tablet 10 mg PO DAILY 0RF levothyroxine 175 MCG tablet 125 mg PO DAILY 0RF ibuprofen 800 mg tablet 800 mg PO Q8H PRNQty: 30 0RF Discharge Instructions Instructions: Depression (ED) Additional Instructions: Please follow the instructions given to you by the [facility] human services team. Please watch for new or worsening symptoms and return to the ER for any concerns. Lastly, I would reach out to your primary care provider and your psychiatrist tomorrow to discuss your ER visit, and discuss outpatient reevaluation. Hopefully you can be seen by your psychiatrist sooner than already scheduled next week. Medical Decision Making 31-year-old female recently diagnosed with bipolar, had allergic reaction to Lamictal, not on that medication for the past week reporting worsening thoughts of depression and intrusive thoughts. She denies any true suicidal ideation, plan, or desire to harm herself. She is hopeful to see her psychiatrist next week. She has no acute medical concerns or complaints at this time. Laboratory values are not required at this time. She does not require a CPSO. Plan is to request a mental health evaluation. Mental health evaluation completed, please see their note. Patient is now at requesting voluntary placement and she certainly does not meet standards for involuntary hold. She is comfortable discharge at this time. Standard discharge and return precautions were provided. Patient understands, is agreeable to this plan, and has no additional questions or concerns upon discharge. This documentation was generated using [employer] system, please disregard any oddities of phrase or misspellings. Medical Records Medical records reviewed: Yes I reviewed the patient's medical records. HPI General Mode of arrival: ambulatory . Date/Time Provider Initiated Documentation: 12/22/21 19:18 . Limitations to Documentation: no limitations . Information obtained by: patient . HPI Narrative: This is a 31-year-old female, past medical history of type 2 diabetes, recently diagnosed with bipolar, placed on Lamictal but subsequently had an allergic reaction, stopped taking the medication 1 week ago and is now reporting increased depression, thoughts of low self-worth, and other intrusive thoughts. She reports passive SI without a plan or thoughts of actually acting upon it. She states that she is scheduled to be seen by her psychiatrist next week and hopefully put back on her medication. She is not requesting any voluntary placement and would simply like to speak with the mental health team. She denies recent illness or trauma. Denies alcohol or drug abuse. Related Data Home Medications Medication Instructions Recorded Confirmed levothyroxine 175 mcg tablet 125 mg PO DAILY 09/08/17 02/19/21 loratadine 10 mg tablet (Claritin) 10 mg PO DAILY 01/02/19 02/19/21 escitalopram oxalate 20 mg tablet 20 mg PO DAILY 10/28/20 02/19/21 (Lexapro) metformin 1,000 mg tablet 1,000 mg PO BID 10/28/20 02/19/21 prenat.vits,rafal,lxb-jnrv-verli 1 tab PO DAILY 10/28/20 12/12/20 ibuprofen 800 mg tablet 800 mg PO Q8H PRN #30 tab 12/12/20 02/19/21 Previous Rx's Medication Instructions Recorded ibuprofen 800 mg tablet 800 mg PO Q8H PRN #30 tab 12/12/20 Allergies Allergy/AdvReac Type Severity Reaction Status Date / Time bee venom protein (honey bee) Allergy Severe Verified 02/19/21 20:09 house dust Allergy Mild Verified 02/19/21 20:09 General Stated Complaint: PsychEval SIN: 2 Review of Systems Constitutional Constitutional: Denies fever(s) Cardiovascular Cardiovascular: Denies chest pain and Denies dyspnea Respiratory Respiratory: Denies dyspnea Gastrointestinal Gastrointestinal: Denies abdominal pain, Denies nausea and Denies vomiting Musculoskeletal Musculoskeletal: Denies back pain Integumentary/Breasts Skin/Breast: Denies rash Psychiatric Psychiatric: Reports anxiety, Reports depression, Denies homicidal ideation and Denies suicidal ideation PFSH All Active Problems (Updated 12/22/21 @ 21:24 by TONI Berry) URI (upper respiratory infection) (Acute) Asthma (Chronic) Depression (Chronic) Status post D&C (Acute) Type 2 diabetes mellitus (Acute) Hypothyroidism (Chronic) Medical History (Updated 12/22/21 @ 21:24 by TONI Berry) Body mass index (BMI) of 40.0-44.9 in adult Depression with anxiety Exercise-induced asthma Hx of sleep apnea cpap Surgical History Hx of adenoidectomy Hx of tonsillectomy Hx of wisdom tooth extraction Status post D&C Social History Smoking/Tobacco Use Status: Current every day Tobacco Type: cigarettes Years smoked: 1 Second Hand Exposure: Yes Smoking risk assessment performed?: Yes Alcohol Intake: never Details: occasional Drug use: Never Substance use type: does not use Number of Children: 0 Seatbelt use: always Do you feel safe at home: Yes Do you feel safe in your relationship?: Yes Female Reproductive History Menstrual control method: pills History History 1 Para 0 Hx # Term Pregnancies 0 Multiple births 0 Hx # Pregnancies 0 Ectopic pregnancies 0 AB induced 0 Hx Number of Living Children 0 AB spontaneous 1 Past Pregnancies Del. Date GA/Weeks # Outcome Route Wgt Sex Labor Lgth Anesthes ia Location Prov Complic 12/10/20 10 No Unsuccessful Delivery Date: 12/10/20 Last Updated by: Merissa Vivar LPN Missed AB; D&C 12/12/20; MD Hina Exam Const General: cooperative, healthy appearing, comfortable and no acute distress Orientation: alert, awake and oriented x3 HENMT Head: normal to inspection, normocephalic and atraumatic Face and sinus: normal facial exam Mouth: moist mucous membranes Eyes General: appearance normal, both eyes and all related structures Conjunctivae: conjunctivae normal Neck Neck: normal visual inspection, trachea midline and supple Resp Effort & Inspection: normal respiratory effort and able to speak in complete sentences Auscultation: clear to auscultation bilaterally Cardio Rate: regular rate Rhythm: regular rhythm Skin General skin exam: no rashes or lesions noted Neuro General: patient alert, patient awake, moves all extremities and no focal motor deficits Cognition: normal cognition Speech: speech normal Gait: normal gait Sensory Exam: no sensory deficits noted Extrem General: normal to inspection Psych Appearance: grossly normal Mental Status: mental status grossly normal Speech and Movement: speech and movement normal Mood: dysthymic mood Affect: normal affect Attitude: cooperative Thought Process: normal Thought Content: normal Insight: insight good Judgment: judgment good Course Vital Signs Vital signs: Vital Signs Temperature 36.7 C 12/22/21 18:58 Pulse 87 12/22/21 18:58 Respiratory Rate 19 12/22/21 18:58 Blood Pressure 135/83 12/22/21 18:58 Pulse Oximetry 100 12/22/21 18:58 Temperature 36.7 C 12/22/21 18:58 Temperature Source Tympanic 12/22/21 18:58 Pulse 87 12/22/21 18:58 Respiratory Rate 19 12/22/21 18:58 Respiratory Effort 12/22/21 19:01 Blood Pressure 135/83 12/22/21 18:58 Blood Pressure Position Sitting 12/22/21 18:58 Pulse Oximetry 100 12/22/21 18:58 Oxygen Delivery Method Room Air 12/22/21 18:58 Oxygen Flow Rate 0 12/22/21 18:58 Pain Level 0 12/22/21 18:58 PAWSS Have you Been Recently Intoxicated or Drunk Within the Last 30 days?: No Have you Ever Experienced Previous Episodes of Alcohol Withdrawal?: No Have you ever Experienced Withdrawal Seizures?: No Have you ever Experienced Delirium Tremens(DT)s?: No Have you ever undergone Alcohol Rehabilitation Treatment (i.e, inpt ot outpatient treatment programs)?: No Have you ever Experienced Blackouts?: No Have you ever Combined Alcohol with other Downers within the last 90 days?: No Have you ever Combined Alcohol with any other Substance of Abuse during the last 90 days?: No Positive Blood Alcohol level on Presentation? [PCS.BAL]: No Evidence of Increased Autonomic Activity (i.e. HR>120, tremor, sweating, agitation, nausea)?: No Result: 0
== END 2021-12-22 21:47 | disposition home or self-care (01) ==
PROVIDERS: Emergency Provider Physician Assistant; PCP Physician Assistant
DX: F32.A Depression, unspecified (principal); R45.851 Suicidal ideations
CPT/HCPCS: 99283

== ENCOUNTER 2022-01-22 09:52 | Outpatient (REF) | payer MEDICAID, SELFPAY ==
[2022-01-22 15:33] LABS: FREE T4 1.18 ng/dL (0.76-1.46); TSH 3.35 uIU/mL (0.36-3.74)
[2022-01-23 14:09] LABS: Chlamydia Result Negative (Negative); GC Result Negative (Negative)
== END 2022-01-22 09:53 | disposition home or self-care (01) ==
LOC: NCHCN 09:52
PROVIDERS: PCP Physician Assistant; Visit Provider Nurse Practitioner Family
DX: E03.9 Hypothyroidism, unspecified (principal); Z11.3 Encounter for screening for infections with a predominantly sexual mode of transmission
CPT/HCPCS: 87491; 87591; 84439; 84443

== ENCOUNTER 2022-07-02 12:01 | Outpatient (REF) | payer MEDICAID, SELFPAY ==
[2022-07-03 14:43] LABS: Chlamydia Result Negative (Negative); GC Result Negative (Negative)
== END 2022-07-02 12:02 | disposition home or self-care (01) ==
LOC: NCHCN 12:01
PROVIDERS: PCP Physician Assistant; Visit Provider Nurse Practitioner Family
DX: N89.8 Other specified noninflammatory disorders of vagina (principal)
CPT/HCPCS: 87491; 87591; 87480; 87510; 87660

== ENCOUNTER 2022-07-22 18:24 | Outpatient (REF) | payer MEDICAID, SELFPAY | END 2022-07-22 18:25 | disposition home or self-care (01) | LOC: NCHCN 18:24 | PROVIDERS: PCP Physician Assistant; Visit Provider Nurse Practitioner Family | DX: N89.8 Other specified noninflammatory disorders of vagina (principal) | CPT/HCPCS: 87480; 87510; 87660 ==

== ENCOUNTER 2023-03-03 09:13 | Outpatient (REF) | payer MEDICAID, SELFPAY ==
--- NOTE | 2023-03-03 08:30 | PAPFT_PTH ---
PATIENT: Chio Méndez LOC: [facility]#:[id number] AGE/SX: 32/F ROOM: RE03/03/[address]: Karla Garcia : 1990 BED: DIS: 03/03/2023 SPEC #: [id number] RECD: 03/04/23 12:43 STATUS: RENETTA REQ #: [id number] LAYLA: 03/03/23 08:[address]: Karla Garcia DEPT: [facility] Cytology RECD BY: Isabella Adorno ENTERED: 03/04/23 12:44 SP TYPE: PAPFT OTHR DR: Omar Gilliam Tissues: 1 - CX/ENDOCX FOR PAP SMEARS Procedures: PAP THIN PREP/[facility] Screening HPV DNA PROBE Comments: [id number] (HPV 16 & 18/45)
[2023-03-03 17:11] LABS: Anion Gap 9.6 mmol/L (3-11); BUN 8 mg/dL (7-18); CO2 27.4 mmol/L (21.0-32.0); CREATININE 0.8 mg/dL (0.55-1.02); Calcium 9.4 mg/dL (8.5-10.1); Calculated LDL 76 mg/dL (<100); Chloride 103 mmol/L (98-107); Cholesterol 151 mg/dL (<200); Estimated GFR 101.59 (mL/min/1.73m2); Glucose 201 mg/dL (74-106); HDL Cholesterol 56 mg/dL (40-60); Potassium 4.8 mmol/L (3.5-5.1); Sodium 140 mmol/L (136-145); TSH 3.55 uIU/mL (0.36-3.74); Triglyceride 96 mg/dL (<150)
[2023-03-03 17:27] LABS: Hemoglobin A1C 7.8 % (<5.7)
[2023-03-03 18:28] LABS: FREE T4 1.01 ng/dL (0.76-1.46)
== END 2023-03-03 09:14 | disposition home or self-care (01) ==
LOC: NCHCN 09:13
PROVIDERS: PCP Physician Assistant; Visit Provider Nurse Practitioner Family
DX: Z01.419 Encounter for gynecological examination (general) (routine) without abnormal findings (principal); E11.9 Type 2 diabetes mellitus without complications; E03.9 Hypothyroidism, unspecified; N89.8 Other specified noninflammatory disorders of vagina; R87.810 Cervical high risk human papillomavirus (HPV) DNA test positive
CPT/HCPCS: 80048; 80061; 88142; 83036; 84439; 84443; 87480; 87510; 87624; 87660

== ENCOUNTER 2025-02-20 18:03 | Outpatient (REF) | payer MEDICAID, SELFPAY | END 2025-02-20 18:04 | disposition home or self-care (01) | LOC: LBN 18:03 | PROVIDERS: PCP Nurse Practitioner Family; Visit Provider Nurse Practitioner Family | DX: R10.9 Unspecified abdominal pain (principal) | CPT/HCPCS: 87077; 87086; 87186 ==